=== PATIENT | female | born 1995 | race Caucasian/White ===

== ENCOUNTER 2017-04-09 18:54 | Emergency (ER) | payer MEDICAID ==
--- NOTE | 2017-04-09 19:30 | ED Physician Chart ---
Chief Complaint/HPI - Patient Information Date Seen:: 04/09/17 Time Seen:: 19:02 Chief Complaint:: Bilateral flank pain since 3 pm today. History of Present Illness:: Brought in by private auto because pt has experienced bilateral flank pain since about 3 pm today. Pain is characterized as sharp, intermiittent and localized. No known precipitating, relieving, or aggravating factors. No fever. Transient N/V with vomitus consists of gastric content. No hematemesis. Last BM yesterday evening, normal in color/consistency. No hematochezia or melena. No gross hematuria, urinary urgency/frequency or dysuria. No vaginal bleeding or discharge. Pt had similar symptom about 2 months ago and was resolved with use of Motrin. LNMP 03/28/17. Allergies:: Allergies Allergy/AdvReac Type Severity Reaction Status Date / Time No Known Allergies Allergy Verified 04/09/17 19:01 Vitals:: Vital Signs - 8 hr 04/09/17 19:01 Temp 98.8 F HR 89 RR 16 BP 136/70 O2 Sat % 99 Historian:: Patient Family MD/PCP:: unknown LMP:: 03/28/17 Review:: Nurse's Note Reviewed Review of Systems - Review of Systems General/Constitutional: No fever, No chills, No weight loss, No weakness, No diaphoresis, No edema, No loss of appetite Head: No headache, No light-headedness Eyes: No loss of vision, No pain, No diplopia ENT: No earache, No nasal drainage, No sore throat, No tinnitus Neck: No neck pain, No swelling, No thyromegaly, No stiffness, No mass noted Cardio Vascular: No chest pain, No palpitations, No edema Pulmonary: No SOB, No cough, No sputum, No wheezing GI: Nausea, Vomiting (transient), No diarrhea, Pain (in both flanks.), No melena , No hematochezia, No constipation, No hematemesis G/U: No dysuria, No frequency, No hematuria Regulatory Technician: No vaginal discharge, No abnormal vaginal bleed Musculoskeletal: No bone or joint pain, No back pain, No muscle pain Endocrine: No polyuria, No polydipsia Psychiatric: No prior psych history Hematopoietic: No bruising, No lymphadenopathy Allergic/Immuno: No urticaria, No angioedema Neurological: No syncope, No focal symptoms, No weakness, No paresthesia, No headache, No dizziness, No confusion, No vertigo Past Medical History - Past Medical History Past Medical History: No significant medical hx Family History: None Social History: Smoker (Rare. Pt has been informed about health risks associated with chronic tobacco use and has been advised to quit. Pt acknowledges understanding.), No Alcohol, No Drug Use, Single, Employed, Other ( lives with her mother.) Employment:: Packing food. Surgical History: None Psychiatricy History: None Medication: None Physical Exam - Physical Examination General/Constitutional: Awake, Well-developed, well-nourished, Alert, No distress, GCS 15, Non-toxic appearing, Ambulatory Other Gen/Cons comments:: Breathes comfortably, speaks clearly, interacts normally, and ambulates without difficulty. Head: Atraumatic Eyes: Lids, conjuctiva normal, PERRL, EOMI Other Eyes comments:: Anicteric sclera. Skin: Nl inspection, No rash, No skin lesions, No ecchymosis, Well hydrated, No lymphadenopathy ENMT: External ears, nose nl, Nasal exam nl, Lips, teeth, gums nl, Oropharynx nl Neck: Nontender, Full ROM w/o pain, No nuchal rigidity, No mass, No stridor Respiratory: Nl effort/Exclusion Cardio Vascular: RRR, No murmur, gallop, rubs GI: No organomegaly, No hernia, Normal BS's, Nondistended, No mass/bruits, No McBurney tenderness Other GI comments:: Tenderness at R and L flank. Abdomen is obese but soft. No R/G. : No CVA tenderness Other comments:: Pelvic exam: deferred per pt's request. Extremities: No tenderness or effusion, Full ROM, normal strength in all extremities, No edema, Normal digits & nails Neuro/Psych: Alert/oriented (oriented x 3), Judgement/insight normal, Mood normal, Normal gait, No focal deficits Misc: Normal back, No paraspinal tenderness Labs/Radiology/EKG Results - Lab Results Results: Laboratory Tests 04/09/17 04/09/17 04/09/17 19:51 19:51 19:51 WBC 15.2 H RBC 4.46 Hgb 12.7 Hct 38.1 MCV 85.6 MCH 28.6 MCHC Differential 33.4 RDW 13.7 Plt Count 261 MPV 8.3 Neutrophils % 86.7 H Lymphocytes % 9.8 L Monocytes % 2.7 Eosinophils % 0.3 Basophils % 0.5 PT 9.3 L INR 0.90 PTT (Actin FS) 25.4 L Sodium 135 L Potassium 3.7 Chloride 105 Carbon Dioxide 25.2 Anion Gap 8.5 BUN 11 Creatinine 0.5 L Est GFR ( Amer) > 60.0 Est GFR (Non-Af Amer) > 60.0 BUN/Creatinine Ratio 22.0 Glucose 90 Whole Bld Lactic Acid Calcium 9.2 Total Bilirubin 0.8 AST 14 ALT 8 Alkaline Phosphatase 55 Total Protein 7.0 Albumin 4.4 Globulin 2.6 Albumin/Globulin Ratio 1.7 Urine Source Urine Color Urine Clarity Urine pH Ur Specific [place] Urine Protein Urine Glucose (UA) Urine Ketones Urine Blood Urine Nitrate Urine Bilirubin Urine Urobilinogen Ur Leukocyte Esterase Urine RBC Urine WBC Ur Epithelial Cells Amorphous Sediment Urine Bacteria Urine Mucus Urine Test 04/09/17 04/09/17 04/09/17 19:51 20:20 20:20 WBC RBC Hgb Hct MCV MCH MCHC Differential RDW Plt Count MPV Neutrophils % Lymphocytes % Monocytes % Eosinophils % Basophils % PT INR PTT (Actin FS) Sodium Potassium Chloride Carbon Dioxide Anion Gap BUN Creatinine Est GFR ( Amer) Est GFR (Non-Af Amer) BUN/Creatinine Ratio Glucose Whole Bld Lactic Acid 0.63 Calcium Total Bilirubin AST ALT Alkaline Phosphatase Total Protein Albumin Globulin Albumin/Globulin Ratio Urine Source CLEAN C Urine Color YELLOW Urine Clarity HAZY Urine pH 8.5 Ur Specific [place] 1.020 Urine Protein 30 H Urine Glucose (UA) NEGATIVE Urine Ketones 40 H Urine Blood NEGATIVE Urine Nitrate NEGATIVE Urine Bilirubin NEGATIVE Urine Urobilinogen 0.2 Ur Leukocyte Esterase NEGATIVE Urine RBC 0-2 Urine WBC 0-2 Ur Epithelial Cells MODERATE Amorphous Sediment MODERATE PHOSPHATES Urine Bacteria 1+ H Urine Mucus FEW Urine Test NEGATIVE - Radiology Results Results: Abdominal and pelvic CT without contrast. Bilateral adnexal fullness with hypodensity. Significance uncertain. If indicated, a pelvic ultrasound may be helpful. No other acute abnormalities. Official report per Dr. Raf Hogan, radiologist. Pelvic sonogram (Preliminary report) No ovarian cyst seen. No gestation seen. ED Septic Shock - . Is Septic Shock (SBP<90, OR Lactate>4 mmol\L) present?: No - <6hrs of presentation: Vital Signs: Vital Signs - 8 hr 04/09/17 19:01 Temp 98.8 F HR 89 RR 16 BP 136/70 O2 Sat % 99 Reassessment (Disposition) - Reassessment Reassessment:: 214 Pt has been repeatedly evaluated. Pt has been essentially pain free and stable. Available lab findings have been reviewed with pt. Awaiting CT report. 2221 Pt remains stable and comfortable. CT report just became available and has been reviewed with pt. Pelvic sonogram ordered per recommendation by Dr. Hogan , radiologist. 0020 Pt remains pain free. Pelvic sonographic report is pending. 0210 Pt has been pain free for at least 5 hours and has been observed for prolonged period. No N/V/D. Preliminary report on pelvic sonogram has been reviewed with pt. Pt requests to go home now and does not want further observation/management in hospital. Aftercare instructions have been given. Reassessment Condition:: Improved - Diagnosis Diagnosis:: Transient bilateral flank pain, resolved and stable. Consider spontaneous passage of renal stone. Bacteriuria, stable. - Aftercare/Follow up Instructions Aftercare/Follow-Up Instructions:: Refer to Discharge Instructions Notes:: Bedrest for today. Increase oral fluid. Strain all urines. If renal stone is isolated, save and bring to PCP or lab for chemical analysis. Abdominal pain instructions given. F/U with Dr. Torres or PCP of pt's choice in one day for recheck, follow on final sonographic report and repeat lab studies: CBC and urinalysis. Return to ER immediately if condition worsens or if any further questions/problems. Medication Prescribed:: Bactrim DS one tab po q12h for 7 days. D-14 R-0 - Patient Disposition Discharge/Transfer:: Home Time:: 02:30 Condition at Disposition:: Stable, Improved ED Discharge Plan - Patient Disposition Admit/Discharge/Transfer: PT DISCHARGED HOME Condition at Disposition: Improved Instructions: Flank Pain
[2017-04-09 19:56] LABS: % BASOPHILS 0.5 % (0.0-2.0); % EOSINOPHILS 0.3 % (0.0-5.0); % LYMPHOCYTES 9.8 % (20.0-50.0); % MONOCYTES 2.7 % (2.0-10.0); % NEUTROPHILS 86.7 % (40.0-80.0); HEMATOCRIT 38.1 % (35.0-45.0); HEMOGLOBIN 12.7 gm/dL (11.7-15.5); MEAN CELL VOLUME 85.6 fl (81-100); MEAN CORPUSCULAR HEMOGLOBIN 28.6 pg (27.0-31.0); MEAN CORPUSCULAR HGB CONC 33.4 pg (28.0-36.0); MEAN PLATELET VOLUME 8.3 fl; NEUTROPHILE ABSOLUTE 13.2 Th/cmm (1.8-8.0); PLATELET COUNT 261 Th/cmm (150-400); RED BLOOD COUNT 4.46 Mil/cmm (3.80-5.10); RED CELL DISTRIBUTION WIDTH 13.7 % (11.5-20.0)
[2017-04-09 20:07] LABS: WHITE BLOOD COUNT 15.2 Th/cmm (4.8-10.8)
[2017-04-09 20:12] LABS: ALB/GLOB RATIO 1.7 (1.0-1.8); ALKALINE PHOSPHATASE 55 U/L (34-104); ANION GAP 8.5 (7.0-16.0); BILIRUBIN,TOTAL 0.8 mg/dL (0.3-1.0); BUN - UREA NITROGEN 11 mg/dL (7-25); CALCIUM SERUM 9.2 mg/dL (8.6-10.3); CARBON DIOXIDE 25.2 mEq/L (21.0-31.0); CHLORIDE 105 mEq/L (98-107); CREATININE - SERUM 0.5 mg/dL (0.6-1.2); GLUCOSE 90 mg/dL (70-105); POTASSIUM SERUM 3.7 mEq/L (3.5-5.1); SGOT 14 U/L (13-39); SGPT/ALT 8 U/L (7-52); SODIUM SERUM 135 mEq/L (136-145)
[2017-04-09 20:19] LABS: INR 0.9 (0.5-1.4)
[2017-04-09 20:27] LABS: PROTHROMBIN TIME (TEST) 9.3 SECONDS (9.5-11.5)
[2017-04-09 20:35] LABS: URINE COLOR YELLOW
[2017-04-09 20:36] LABS: URINE AMORPHOUS SEDIMENT MODERATE PHOSPHATES (NONE SEEN); URINE BACTERIA 1+ /hpf (NONE SEEN); URINE BILIRUBIN NEGATIVE (NEGATIVE); URINE BLOOD NEGATIVE (NEGATIVE); URINE EPITHELIAL CELLS MODERATE /lpf (FEW); URINE GLUCOSE (UA) NEGATIVE (NEGATIVE); URINE KETONE 40 mg/dL (NEGATIVE); URINE PH 8.5; URINE PROTEIN 30 mg/dL (NEGATIVE); URINE RBC 0-2 /hpf (0-5); URINE UROBILINOGEN 0.2 E.U./dL (0.2 - 1.0); URINE WBC 0-2 /hpf (0-5)
--- NOTE | 2017-04-10 10:12 | Diagnostic Imaging Report ---
CT scan of the abdomen and pelvis without intravenous contrast History: Pain Total DLP equals CTDI equals Axial sections were obtained from the xiphoid process down to the pubic symphysis. The liver demonstrates a normal size and contour. No focal lesions are seen. The spleen appears normal. No abnormalities are seen in the region of the pancreas. The kidneys appear normal bilaterally. The exam of the pelvis demonstrates bilateral adnexal fullness/enlargement with suggestion of hypodensity. Exact significance is uncertain. If necessary, a pelvic ultrasound exam would provide additional assessment. IMPRESSION: 1. Bilateral adnexal fullness/enlargement with suggestion of hypodensity. Significance is uncertain. If indicated, a pelvic ultrasound may provide additional detail. No other acute abnormalities.
--- NOTE | 2017-04-10 10:16 | Diagnostic Imaging Report ---
Pelvic ultrasound HISTORY: Pain, adnexal enlargement Exam is limited to transabdominal sonographic technique. There is a normal uterine size (5.3 x 3.1 x 3.0 cm). No focal myometrial lesions are seen. Endometrium measures 3.6 mm thickness. The right ovary measures 3.1 x 1.9 x 2.5 cm. Multiple cysts less than 1.0 cm are seen. The left ovary measures 4.0 x 2.1 x 2.6 cm. Multiple cysts less than 1.0 cm are seen. No free fluid in the pelvis. IMPRESSION: 1. Bilateral ovarian cystic changes most likely physiologic.
== END 2017-04-10 02:35 | disposition home or self-care (01) ==
LOC: ER 18:54
DX: R10.9 Unspecified abdominal pain (principal); R82.71 Bacteriuria; R11.2 Nausea with vomiting, unspecified; F17.200 Nicotine dependence, unspecified, uncomplicated
CPT/HCPCS: 99285; 96374; 96375; 76856; 74176; 36415; 83605; 85007; 85027; 85610; 81001; 81025; 80053; J1885; J2405